=== PATIENT | male | born 1975 | race Caucasian/White ===

== ENCOUNTER 2024-12-02 06:29 | Day surgery (SDC) | payer OTHER, SELFPAY | END 2024-12-02 10:40 | disposition home or self-care (01) | LOC: GI 06:29 | PROVIDERS: ATTENDING PHYSICIAN Surgery | DX: Z12.11 Encounter for screening for malignant neoplasm of colon (principal); K64.8 Other hemorrhoids | CPT/HCPCS: G0121 ==